=== PATIENT | male | born 1960 | race Caucasian/White ===

== ENCOUNTER → 2017-02-12 | Outpatient (CLI) | payer MEDICAID ==
[~2017-02-12] MED LIST: ALL DAY ALLERGY10 MG PO; GABAPENTIN100 MG PO; GLIPIZIDE 5MG TA5 MG PO; KEFLEX 500MG.500 MG PO; LISINOPRIL 5MG T5 MG PO; METFORMIN1000 MG PO
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
== END ==
LOC: RT 13:38
DX: M25.561 Pain in right knee (principal)